=== PATIENT | male | born 1960 | race Caucasian/White ===

== ENCOUNTER → 2019-10-23 | Outpatient (CLI) | payer BC, OTHER ==
[~2019-10-23] MED LIST: NORCO 5-325 TA1 EACH PO; VITAMIN D34000 UNIT
== END ==
LOC: CAT 15:44
DX: J84.10 Pulmonary fibrosis, unspecified (principal); R91.1 Solitary pulmonary nodule; J98.4 Other disorders of lung; I25.10 Atherosclerotic heart disease of native coronary artery without angina pectoris